=== PATIENT | male | born 1965 | race Caucasian/White ===

== ENCOUNTER 2017-03-05 08:34 | Emergency (ER) | payer SELFPAY ==
[~2017-03-05] VITALS: Ht 167.6 cm; Wt 68.0 kg
[~2017-03-05 08:34] MED LIST: HYDR-971 PO
[2017-03-05 09:00] VITALS: BP 136/87
[2017-03-05] MEDS ORDERED: CLINDAMYCIN 900MG PREMIX 50 ML IV ONE (09:15)
--- NOTE | 2017-03-05 09:17 | PHYS DOC ---
Past Medical History Past Medical History: Kidney Stone Past Surgical History: Other Additional Past Surgical Histo: abdomen and leg surgery Alcohol Use: Occasionally Drug Use: None Adult General Chief Complaint Chief Complaint: INSECT BITE HPI HPI Patient is a 51 year old male who presents with along tenderness left axilla and a red streak down his left arm. He states this all started partially 4 days ago he noticed a lump in his axilla first and then yesterday noticed a streak that started on his arm. He also states that he's been filling that he's had fevers and chills. He hasn't taken his temperature. Denies any nausea vomiting chest pain shortness of breath. He denies any injections in his left arm. He states that he is on no medications and has no allergies to medications and does not have a primary care physician at this time. He states his last tetanus shot was within the last 5 years. Review of Systems Review of Systems Constitutional: Denies fever or chills [] Eyes: Denies change in visual acuity, redness, or eye pain [] HENT: Denies nasal congestion or sore throat [] Respiratory: Denies cough or shortness of breath [] Cardiovascular: No additional information not addressed in HPI [] GI: Denies abdominal pain, nausea, vomiting, bloody stools or diarrhea [] : Denies dysuria or hematuria [] Musculoskeletal: Denies back pain or joint pain [] Integument: Positive for rash on left forearm. Neurologic: Denies headache, focal weakness or sensory changes [] Endocrine: Denies polyuria or polydipsia [] Current Medications Current Medications Current Medications Medications (Trade) Dose Ordered Sig/Lynda Start Time Stop Time Status Last Admin Dose Admin Clindamycin Phosphate 50 ml @ 100 mls/hr 1X ONCE 03/05/17 09:15 03/05/17 09:44 DC 03/05/17 09:58 100 MLS/HR Allergies Allergies Allergies Coded Allergies Type Severity Reaction Last Updated Verified No Known Drug Allergies 06/13/15 No Physical Exam Physical Exam Constitutional: Well developed, well nourished, no acute distress, non-toxic appearance. [] HENT: Normocephalic, atraumatic, bilateral external ears normal, oropharynx moist, no oral exudates, nose normal. [] Eyes: PERRLA, EOMI, conjunctiva normal, no discharge. [] Neck: Normal range of motion, no tenderness, supple, no stridor. [] Cardiovascular:Heart rate regular rhythm, no murmur [] Lungs & Thorax: Bilateral breath sounds clear to auscultation [] Abdomen: Bowel sounds normal, soft, no tenderness, no masses, no pulsatile masses. [] Skin: Warm, dry, 5 mm mobile firm nodule in left forearm with erythema 1 cm wide from mid arm on the medial side to mid forearm. Back: No tenderness, no CVA tenderness. [] Extremities: No tenderness, no cyanosis, no clubbing, ROM intact, no edema. [] Neurologic: Alert and oriented X 3, normal motor function, normal sensory function, no focal deficits noted. [] Psychologic: Affect normal, judgement normal, mood normal. [] Current Patient Data Vital Signs Vital Signs Date Time Temp Pulse Resp B/P (MAP) Pulse Ox O2 Delivery O2 Flow Rate FiO2 03/05/17 09:00 87 16 97 Room Air Lab Values Laboratory Tests Test 03/05/17 09:20 White Blood Count 8.8 x10^3/uL (4.0-11.0) Red Blood Count 4.79 x10^6/uL (4.30-5.70) Hemoglobin 15.6 g/dL (13.0-17.5) Hematocrit 43.9 % (39.0-53.0) Mean Corpuscular Volume 92 fL (79-100) Mean Corpuscular Hemoglobin 33 pg (25-35) Mean Corpuscular Hemoglobin Concent 36 g/dL (31-37) Red Cell Distribution Width 12.9 % (11.5-14.5) Platelet Count 281 x10^3/uL (140-400) Neutrophils (%) (Auto) 67 % (31-73) Lymphocytes (%) (Auto) 19 % (24-48) L Monocytes (%) (Auto) 9 % (0-9) Eosinophils (%) (Auto) 5 % (0-3) H Basophils (%) (Auto) 1 % (0-3) Neutrophils # (Auto) 5.9 x10^3uL (1.8-7.7) Lymphocytes # (Auto) 1.6 x10^3/uL (1.0-4.8) Monocytes # (Auto) 0.8 x10^3/uL (0.0-1.1) Eosinophils # (Auto) 0.4 x10^3/uL (0.0-0.7) Basophils # (Auto) 0.1 x10^3/uL (0.0-0.2) Sodium Level 141 mmol/L (136-145) Potassium Level 3.9 mmol/L (3.5-5.1) Chloride Level 103 mmol/L (98-107) Carbon Dioxide Level 29 mmol/L (21-32) Anion Gap 9 (6-14) Blood Urea Nitrogen 15 mg/dL (8-26) Creatinine 0.9 mg/dL (0.7-1.3) Estimated GFR (Cockcroft-Gault) 88.3 BUN/Creatinine Ratio 17 (6-20) Glucose Level 122 mg/dL (70-99) H Lactic Acid Level 1.4 mmol/L (0.4-2.0) Calcium Level 9.3 mg/dL (8.5-10.1) Total Bilirubin 0.6 mg/dL (0.2-1.0) Aspartate Amino Transferase (AST) 62 U/L (15-37) H Alanine Aminotransferase (ALT) 77 U/L (16-63) H Alkaline Phosphatase 68 U/L (46-116) C-Reactive Protein, Quantitative 5.8 mg/L (0-3.3) H Total Protein 8.1 g/dL (6.4-8.2) Albumin 3.8 g/dL (3.4-5.0) Albumin/Globulin Ratio 0.9 (1.0-1.7) L Laboratory Tests 03/05/17 09:20 Laboratory Tests 03/05/17 09:20 EKG EKG [] Radiology/Procedures Radiology/Procedures [facility] [address] [place], [place] [id number] IMAGING REPORT Signed PATIENT: NURIA GRIJALVA ACCOUNT: [id number] : 1965 LOCATION: ER AGE: 51 SEX: M EXAM STATUS: REG ER ORD. PHYSICIAN: RANULFO OBRIEN MD REASON: pain PROCEDURE: VENOUS UPPER EXTREMITY LEFT Indication pain and swelling. Indurated area in the left arm. Grayscale color Doppler and spectral imaging was performed. Examination was targeted to the veins of the left upper extremity. The internal jugular vein is widely patent. The subclavian and axillary veins are patent. No thrombus is seen. The brachial vein is patent. Basilic and cephalic veins appear unremarkable. Visualized ulnar and radial veins also appear normal. No DVT is seen. IMPRESSION: Negative left upper extremity venous analysis for DVT DICTATED and SIGNED BY: BENITO MIRANDA MD DATE: 03/05/17 1000 CC: RANULFO OBRIEN MD; NO PCP ~ Impressions: Cellulitis of left arm Course & Med Decision Making Course & Med Decision Making Pertinent Labs and Imaging studies reviewed. (See chart for details) Ultrasound of left upper show many negative for DVT. He likely has cellulitis and lymph node enlargement. We'll discharge with clindamycin 300 mg every 6 hours for 10 days and received 900 mg IV before going. Return precautions given , he is agreeable to the plan and being discharged in stable condition. Dragon Disclaimer Dragon Disclaimer This electronic medical record was generated, in whole or in part, using a voice recognition dictation system. Departure Departure Impression: Primary Impression: Cellulitis Disposition: HOME, SELF-CARE Condition: STABLE Referrals: NO PCP (PCP) Patient Instructions: Cellulitis, [id number] Additional Instructions: You have an infection of your arm and you need to take antibiotics for the next 10 days. Return ER for fevers, nausea, vomiting, worsening redness of your arm, swelling of your arm, or other concerns. He can take [place] which is a narcotic pain medicine as needed, do not drive your car while taking this as it can impair judgment and make you sleepy. Scripts Hydrocodone/Apap 5-325 (NORCO 5-325 TABLET) 1 Each Tablet 1-2 TAB PO Q6HRS Y for PAIN, #20 TAB Prov: RANULFO OBRIEN MD 03/05/17 Clindamycin Hcl (CLINDAMYCIN HCL) 300 Mg Capsule 300 MG PO QID for 10 Days, #40 CAP Prov: RANULFO OBRIEN MD 03/05/17 RANULFO OBRIEN MD March 05, 2017 09:17
[2017-03-05 09:44] LABS: CALCIUM 9.3 mg/dL (8.5-10.1); CREATININE 0.9 mg/dL (0.7-1.3); GFR 88.3; POTASSIUM 3.9 mmol/L (3.5-5.1)
[2017-03-05 09:50] LABS: ALBUMIN 3.8 g/dL (3.4-5.0); ALBUMIN/GLOBULIN RATIO 0.9 (1.0-1.7); C-REACTIVE PROTEIN 5.8 mg/L (0-3.3); TOTAL BILIRUBIN 0.6 mg/dL (0.2-1.0); TOTAL PROTEIN 8.1 g/dL (6.4-8.2)
[2017-03-05 09:58] LABS: BASO # 0.1 x10^3/uL (0.0-0.2); BASO % 1 % (0-3); EOS % 5 % (0-3); HEMATOCRIT 43.9 % (39.0-53.0); HEMOGLOBIN 15.6 g/dL (13.0-17.5); LYMPH # 1.6 x10^3/uL (1.0-4.8); LYMPH % 19 % (24-48); MEAN CORPUSCULAR HEMOGLOBIN 33 pg (25-35); MEAN CORPUSCULAR HGB CONC 36 g/dL (31-37); MEAN CORPUSCULAR VOLUME 92 fL (79-100); MONO % 9 % (0-9); NEUT % 67 % (31-73); PLATELET COUNT 281 x10^3/uL (140-400); RED BLOOD COUNT 4.79 x10^6/uL (4.30-5.70); RED CELL DISTRIBUTION WIDTH 12.9 % (11.5-14.5); WHITE BLOOD COUNT 8.8 x10^3/uL (4.0-11.0)
--- NOTE | 2017-03-05 10:04 | RAD ---
Indication pain and swelling. Indurated area in the left arm. Grayscale color Doppler and spectral imaging was performed. Examination was targeted to the veins of the left upper extremity. The internal jugular vein is widely patent. The subclavian and axillary veins are patent. No thrombus is seen. The brachial vein is patent. Basilic and cephalic veins appear unremarkable. Visualized ulnar and radial veins also appear normal. No DVT is seen. IMPRESSION: Negative left upper extremity venous analysis for DVT
[2017-03-05] MEDS ORDERED: CLIN300C86 PO (10:53)
[2017-03-05] MEDS ORDERED: HYDR-971 PO (10:53)
== END 2017-03-05 11:00 | disposition home or self-care (01) ==
LOC: ER 08:34
DX: L03.114 Cellulitis of left upper limb (principal); M79.632 Pain in left forearm
CPT/HCPCS: 36415; 80053; 83605; 85027; 85651; 86140; 87040; 93971; 96365; 99285; J3490

== ENCOUNTER 2018-05-06 19:01 | Emergency (ER) | payer SELFPAY ==
[2018-05-06] MEDS ORDERED: IBUPROFEN 800 MG TABLET. PO (19:56)
[2018-05-06] MEDS: IBUPROFEN 800 MG TABLET. PO (20:00)
== END 2018-05-06 20:03 | disposition home or self-care (01) ==
LOC: ER 19:01
DX: H60.92 Unspecified otitis externa, left ear (principal); H66.92 Otitis media, unspecified, left ear; Z87.442 Personal history of urinary calculi; Z98.890 Other specified postprocedural states
CPT/HCPCS: 69209; 99283

== ENCOUNTER 2018-07-07 11:03 | Emergency (ER) | payer SELFPAY ==
[~2018-07-07] VITALS: Ht 167.6 cm; Wt 70.3 kg
[~2018-07-07 11:03] MED LIST changes: +AMOX500C PO; +CEPH500T PO; +CIPR7.5D EACH EAR; +CLIN300C8 PO; +IBUP-1060 PO; +TRAM-48 PO
--- NOTE | 2018-07-07 11:50 | PHYS DOC ---
Past Medical History Past Medical History: No Pertinent History Past Surgical History: Other Additional Past Surgical Histo: abdomen and leg surgery Alcohol Use: Occasionally Drug Use: None Adult General Chief Complaint Chief Complaint: RECTAL BLEED [facility] HPI Patient is a 53 year old male with a history of a perforated ulcer presents to the ED complaining of rectal bleeding 3 months. Patient states he's had intermittent bloody stools over the last 3 months. States that he woke up with abdominal pain. Patient has a history of drinking beer every other day and is also a smoker. States he takes quite a few tylenol PMs for his pain. Describes the pain as sharp. Rates the pain as 6/10. Denies fever, chest pain, shortness of breath, vomiting, hematemesis, headache, neck pain, vision changes, weakness. Review of Systems Review of Systems Constitutional: Denies fever or chills [] Eyes: Denies change in visual acuity, redness, or eye pain [] HENT: Denies nasal congestion or sore throat [] Respiratory: Denies cough or shortness of breath [] Cardiovascular: No additional information not addressed in HPI [] GI: Complains of abdominal pain and blood in stool. Denies nausea, vomiting, : Denies dysuria or hematuria [] Musculoskeletal: Denies back pain or joint pain [] Integument: Denies rash or skin lesions [] Neurologic: Denies headache, focal weakness or sensory changes [] All other systems were reviewed and found to be within normal limits, except as documented in this note. Current Medications Current Medications Current Medications Medications (Trade) Dose Ordered Sig/Lynda Start Time Stop Time Status Last Admin Dose Admin Info (CONTRAST GIVEN -- Rx MONITORING) 1 each PRN DAILY PRN 07/07/18 13:00 07/07/18 15:35 DC Iohexol (Omnipaque 300 Mg/ml) 75 ml 1X ONCE 07/07/18 13:00 07/07/18 13:01 DC Morphine Sulfate (Morphine Sulfate) 2 mg 1X ONCE 07/07/18 14:00 07/07/18 14:04 DC 07/07/18 14:17 2 MG Ondansetron HCl (Zofran) 4 mg 1X ONCE 07/07/18 12:45 07/07/18 12:46 DC 07/07/18 12:51 4 MG Sodium Chloride 1,000 ml @ 1,000 mls/hr 1X ONCE 07/07/18 14:00 07/07/18 14:59 DC 07/07/18 14:16 1,000 MLS/HR Allergies Allergies Allergies Coded Allergies Type Severity Reaction Last Updated Verified No Known Drug Allergies 06/13/15 No Physical Exam Physical Exam Constitutional: Well developed, well nourished, no acute distress, non-toxic appearance. [] HENT: Normocephalic, atraumatic Eyes: PERRLA, EOMI, conjunctiva normal, no discharge. [] Neck: Normal range of motion, no tenderness, supple, no stridor. [] Cardiovascular:Heart rate regular rhythm, no murmur [] Lungs & Thorax: Bilateral breath sounds clear to auscultation [] Abdomen: Bowel sounds normal, soft, mild diffuse lower abdominal tenderness, no masses, no pulsatile masses. [] Skin: Warm, dry, no erythema, no rash. [] Back: No tenderness, no CVA tenderness. [] Extremities: No tenderness, no cyanosis, no clubbing, ROM intact, no edema. [] Neurologic: Alert and oriented X 3, normal motor function, normal sensory function, no focal deficits noted. [] Psychologic: Affect normal, judgement normal, mood normal. [] Current Patient Data Vital Signs Vital Signs Date Time Temp Pulse Resp B/P (MAP) Pulse Ox O2 Delivery O2 Flow Rate FiO2 07/07/18 15:18 74 17 140/78 (98) 100 Room Air 07/07/18 11:36 97.7 97.7 Lab Values Laboratory Tests Test 07/07/18 12:21 White Blood Count 9.5 x10^3/uL (4.0-11.0) Red Blood Count 4.84 x10^6/uL (4.30-5.70) Hemoglobin 16.1 g/dL (13.0-17.5) Hematocrit 44.9 % (39.0-53.0) Mean Corpuscular Volume 93 fL (79-100) Mean Corpuscular Hemoglobin 33 pg (25-35) Mean Corpuscular Hemoglobin Concent 36 g/dL (31-37) Red Cell Distribution Width 12.8 % (11.5-14.5) Platelet Count 282 x10^3/uL (140-400) Neutrophils (%) (Auto) 63 % (31-73) Lymphocytes (%) (Auto) 26 % (24-48) Monocytes (%) (Auto) 7 % (0-9) Eosinophils (%) (Auto) 3 % (0-3) Basophils (%) (Auto) 1 % (0-3) Neutrophils # (Auto) 6.0 x10^3uL (1.8-7.7) Lymphocytes # (Auto) 2.5 x10^3/uL (1.0-4.8) Monocytes # (Auto) 0.7 x10^3/uL (0.0-1.1) Eosinophils # (Auto) 0.2 x10^3/uL (0.0-0.7) Basophils # (Auto) 0.1 x10^3/uL (0.0-0.2) Prothrombin Time 11.9 SEC (11.7-14.0) Prothrombin Time INR 0.9 (0.8-1.1) PTT 28 SEC (24-38) Sodium Level 141 mmol/L (136-145) Potassium Level 3.8 mmol/L (3.5-5.1) Chloride Level 103 mmol/L (98-107) Carbon Dioxide Level 23 mmol/L (21-32) Anion Gap 15 (6-14) H Blood Urea Nitrogen 14 mg/dL (8-26) Creatinine 0.8 mg/dL (0.7-1.3) Estimated GFR (Cockcroft-Gault) 100.4 BUN/Creatinine Ratio 18 (6-20) Glucose Level 106 mg/dL (70-99) H Calcium Level 10.1 mg/dL (8.5-10.1) Total Bilirubin 0.8 mg/dL (0.2-1.0) Aspartate Amino Transferase (AST) 61 U/L (15-37) H Alanine Aminotransferase (ALT) 90 U/L (16-63) H Alkaline Phosphatase 61 U/L (46-116) Troponin I Quantitative < 0.017 ng/mL (0.000-0.055) Total Protein 8.0 g/dL (6.4-8.2) Albumin 4.1 g/dL (3.4-5.0) Albumin/Globulin Ratio 1.1 (1.0-1.7) Laboratory Tests 07/07/18 12:21 Laboratory Tests 10/2/18 12:21 EKG EKG [] Radiology/Procedures Radiology/Procedures Indication: Abdominal pain. GI bleed. Exposure: One or more of the following individualized dose reduction techniques were utilized for this examination: 1. Automated exposure control 2. Adjustment of the mA and/or kV according to patient size 3. Use of iterative reconstruction technique. Comparison: November 17, 2009 Contrast: Intravenous contrast was given. No oral contrast per request. FINDINGS: Lower thorax: Lung bases are clear. Liver: Subtle hypodense lesion of the right lobe measures 9 mm. Difficult to characterize due to its small size, may represent a benign process such as hemangioma or cyst. Spleen: Unremarkable Pancreas: Unremarkable Adrenals: No evidence of mass. Kidneys: Hypodense lesion of the anterior left kidney upper pole was also seen on the prior study, likely a cyst measuring 17 mm. Urinary tracts: No hydronephrosis. Gallbladder: No calcified stone Lymph nodes: No significant enlargement Vessels: * Aorta: Nonaneurysmal * Major aortic branches: Grossly patent. * Portal venous: Patent GI tract: No evidence of acute colitis. No evidence of bowel obstruction. Appendix is normal. Reproductive organs:No evidence of mass. Urinary bladder: Not adequately distended for evaluation. Peritoneum: No evidence of pneumoperitoneum. No free fluid. Abdominal wall:Unremarkable Spine: Mild anterior wedge deformity of the T11 and T12 vertebral bodies.Sagittal reconstructions are not available on the prior exam, but this appears similar as compared with the coronal images. Bones: No acute displaced fracture is identified. IMPRESSION: 1. No acute findings are identified in the abdomen or pelvis. 2. Small left renal lesion appears similar likely a cyst. 3. Small hypodense subcentimeter right lobe liver lesion, not clearly seen previously but would still most commonly represent a benign process such as cyst or hemangioma. The lesion is too small characterize by CT.[] Course & Med Decision Making Course & Med Decision Making Pertinent Labs and Imaging studies reviewed. (See chart for details) []Reviewed labs and imaging findings with patient. Patient's pain resolved. On reexamination, abdomen is soft nontender nondistended. No peritoneal signs. Tolerating by mouth. States he has not had any bloody stools today (refuses rectal exam). Patient well appearing. Discussed obtaining an outpatient GI evaluation and colonoscopy in the next week. Provided contact information/ education. Discussed reasons to return to the ED. Patient understands and agrees with plan. Patient able to ambulate without assistance. Dragon Disclaimer Dragon Disclaimer This electronic medical record was generated, in whole or in part, using a voice recognition dictation system. Departure Departure Impression: Primary Impression: Rectal bleeding Disposition: HOME, SELF-CARE Condition: IMPROVED Referrals: NO PCP (PCP) DOMINGO QUIROZ MD Patient Instructions: Rectal Bleeding SOMMER MARTINEZ Jul 07, 2018 11:50
--- NOTE | 2018-07-07 12:23 | RAD ---
Examination: PORTABLE CHEST 1V History: CHEST PAIN, HX SMOKER Comparison/Correlation: 03/31/2011 right lateral ribs x-ray exam Findings: Frontal view of the chest was obtained with the patient upright. Heart size and bony vasculature are normal. No infiltrate or pleural effusion. Old right rib fractures are present. Old distal right clavicular fractures are present. No pneumothorax. Impression: No active disease. Old fractures. Electronically signed by: Bernardo Beltran MD (07/07/2018 12:19 PM) [id number]
[2018-07-07 12:31] LABS: BASO # 0.1 x10^3/uL (0.0-0.2); BASO % 1 % (0-3); EOS # 0.2 x10^3/uL (0.0-0.7); EOS % 3 % (0-3); HEMATOCRIT 44.9 % (39.0-53.0); HEMOGLOBIN 16.1 g/dL (13.0-17.5); LYMPH # 2.5 x10^3/uL (1.0-4.8); LYMPH % 26 % (24-48); MEAN CORPUSCULAR HEMOGLOBIN 33 pg (25-35); MEAN CORPUSCULAR HGB CONC 36 g/dL (31-37); MEAN CORPUSCULAR VOLUME 93 fL (79-100); MONO # 0.7 x10^3/uL (0.0-1.1); MONO % 7 % (0-9); NEUT % 63 % (31-73); PLATELET COUNT 282 x10^3/uL (140-400); RED BLOOD COUNT 4.84 x10^6/uL (4.30-5.70); RED CELL DISTRIBUTION WIDTH 12.8 % (11.5-14.5); WHITE BLOOD COUNT 9.5 x10^3/uL (4.0-11.0)
[2018-07-07 12:40] LABS: CALCIUM 10.1 mg/dL (8.5-10.1); CREATININE 0.8 mg/dL (0.7-1.3); GFR 100.4; POTASSIUM 3.8 mmol/L (3.5-5.1)
[2018-07-07 12:41] LABS: PROTHROMBIN TIME PATIENT 11.9 SEC (11.7-14.0)
[2018-07-07] MEDS ORDERED: MORPHINE SULFATE 4 MG/ML VIAL. IV ONE (12:45)
[2018-07-07] MEDS ORDERED: ONDANSETRON PF 4 MG/2 ML VIAL. IV ONE (12:45)
[2018-07-07 12:46] LABS: ALBUMIN 4.1 g/dL (3.4-5.0); ALBUMIN/GLOBULIN RATIO 1.1 (1.0-1.7); TOTAL BILIRUBIN 0.8 mg/dL (0.2-1.0)
[2018-07-07] MEDS ORDERED: CONTRAST GIVEN. MC PRN (13:00)
[2018-07-07] MEDS ORDERED: IOHEXOL 300 MG/ML 100ML VIAL. IV ONE (13:00)
--- NOTE | 2018-07-07 13:49 | EKG ---
[facility] [address] [place] [address] Test Date: 2018-07-07 Test Time: 12:11:04 Pat Name: NURIA GRIJALVA Department: Room: Gender: M Vinyl [employer]: TW : 1965 Requested By: SOMMER MARTINEZ Order Number: [id number] Reading MD: Measurements Intervals [place] Rate: 83 P: 59 MT: 128 QRS: 69 QRSD: 94 T: 65 QT: 396 QTc: 471 Interpretive Statements SINUS RHYTHM NON SPECIFIC T ABNORMALITY BORDERLINE ECG No previous ECG available for comparison
[2018-07-07] MEDS ORDERED: IV NORMAL SALINE 1000ML BAG 1,000 ML IV ONE (14:00)
[2018-07-07] MEDS ORDERED: MORPHINE SULFATE 2 MG/ML VIAL. IV ONE (14:00)
--- NOTE | 2018-07-07 14:06 | RAD ---
CT ABD PELV W/ IV CONTRST ONLY Indication: Abdominal pain. GI bleed. Exposure: One or more of the following individualized dose reduction techniques were utilized for this examination: 1. Automated exposure control 2. Adjustment of the mA and/or kV according to patient size 3. Use of iterative reconstruction technique. Comparison: November 17, 2009 Contrast: Intravenous contrast was given. No oral contrast per request. FINDINGS: Lower thorax: Lung bases are clear. Liver: Subtle hypodense lesion of the right lobe measures 9 mm. Difficult to characterize due to its small size, may represent a benign process such as hemangioma or cyst. Spleen: Unremarkable Pancreas: Unremarkable Adrenals: No evidence of mass. Kidneys: Hypodense lesion of the anterior left kidney upper pole was also seen on the prior study, likely a cyst measuring 17 mm. Urinary tracts: No hydronephrosis. Gallbladder: No calcified stone Lymph nodes: No significant enlargement Vessels: * Aorta: Nonaneurysmal * Major aortic branches: Grossly patent. * Portal venous: Patent GI tract: No evidence of acute colitis. No evidence of bowel obstruction. Appendix is normal. Reproductive organs:No evidence of mass. Urinary bladder: Not adequately distended for evaluation. Peritoneum: No evidence of pneumoperitoneum. No free fluid. Abdominal wall:Unremarkable Spine: Mild anterior wedge deformity of the T11 and T12 vertebral bodies.Sagittal reconstructions are not available on the prior exam, but this appears similar as compared with the coronal images. Bones: No acute displaced fracture is identified. IMPRESSION: 1. No acute findings are identified in the abdomen or pelvis. 2. Small left renal lesion appears similar likely a cyst. 3. Small hypodense subcentimeter right lobe liver lesion, not clearly seen previously but would still most commonly represent a benign process such as cyst or hemangioma. The lesion is too small characterize by CT. Electronically signed by: Petar Garcia MD (07/07/2018 2:02 PM) [id number]
[2018-07-07 15:18] VITALS: BP 140/78
== END 2018-07-07 15:28 | disposition home or self-care (01) ==
LOC: ER 11:03
DX: K62.5 Hemorrhage of anus and rectum (principal); R10.31 Right lower quadrant pain; R10.32 Left lower quadrant pain; F17.200 Nicotine dependence, unspecified, uncomplicated
CPT/HCPCS: 36415; 71045; 74177; 80053; 84484; 85025; 85610; 85730; 86850; 86900; 86901; 93005; 96361; 96374; 96375; 96376; 99285; J2270; J2405; J7030